=== PATIENT | male | born 1980 | race Caucasian/White ===

== ENCOUNTER 2017-10-26 08:05 | Outpatient (CLI) | payer MEDICAID ==
[2017-10-26 08:35] LABS: CHOL/HDL RATIO 8.2 (<5.0); CHOLESTEROL 196 mg/dL; HDL CHOLESTEROL 24 mg/dL; LDL CHOLESTEROL,CALCULATED 141 mg/dL; LDL/HDL RATIO 5.9 (<3.6); VLDL CHOLESTEROL 31 mg/dL
== END 2017-10-26 08:06 | disposition home or self-care (01) ==
LOC: LAB 08:05
PROVIDERS: ATTEND Nurse Practitioner Family
DX: E78.5 Hyperlipidemia, unspecified (principal); E29.1 Testicular hypofunction
CPT/HCPCS: 36415; 80061; 83721; 84403

== ENCOUNTER 2017-12-07 08:02 | Outpatient (CLI) | payer MEDICAID ==
[2017-12-07 08:26] LABS: BASOPHILS # (AUTO) 0.1 10^3/uL (0.0-0.1); BASOPHILS % (AUTO) 1.1 %; EOSINOPHILS # (AUTO) 0.1 10^3/uL (0.0-0.7); EOSINOPHILS % (AUTO) 1.8 %; HGB - HEMOGLOBIN 14.7 g/dL (14.0-18.0); LYMPHOCYTES # (AUTO) 1.9 10^3/uL (1.5-3.5); LYMPHOCYTES % (AUTO) 30.9 %; MEAN CORPUSCULAR HEMOGLOBIN 29.9 pg (27.0-31.0); MEAN CORPUSCULAR HGB CONC 33.7 g/dL (32.0-36.0); MEAN CORPUSCULAR VOLUME 88.7 fL (80.0-94.0); MONOCYTES # (AUTO) 0.7 10^3/uL (0.0-1.0); MONOCYTES % (AUTO) 11.6 %; NEUTROPHILS # (AUTO) 3.4 10^3/uL (1.5-6.6); NEUTROPHILS % (AUTO) 54.6 %; PLT - PLATELET COUNT 214 10^3/uL (130-450); RED BLOOD COUNT 4.91 10^6/uL (4.70-6.10); WHITE BLOOD COUNT 6.2 x10^3/uL (4.8-10.8)
[2017-12-07 08:51] LABS: THYROID STIMULATING HORMONE 0.44 uIU/mL (0.34-5.60); TOTAL IRON BINDING CAPACITY 297 ug/dL (250-450); TRANSFERRIN 212 mg/dL (180-329)
[2017-12-07 08:53] LABS: FREE T4 (FREE THYROXINE) 0.81 ng/dL (0.58-1.64)
[2017-12-07 08:57] LABS: PROLACTIN 6.82 ng/mL
[2017-12-07 09:13] LABS: % IRON SATURATION 26 % (20-50); IRON 77 ug/dL (45-182)
[2017-12-07 09:19] LABS: LUTEINIZING HORMONE 4.75 mIU/mL
== END 2017-12-07 08:03 | disposition home or self-care (01) ==
LOC: LAB 08:02
PROVIDERS: ATTEND Internal Medicine Endocrinology, Diabetes & Metabolism
DX: E29.1 Testicular hypofunction (principal)
CPT/HCPCS: 36415; 83002; 83540; 84146; 84403; 84439; 84443; 84466; 85025

== ENCOUNTER 2018-06-16 15:04 | Outpatient (CLI) | payer MEDICAID ==
--- NOTE | 2018-06-17 14:30 | XRAY Report ---
Reason: SCIATICA,LEFT Procedure Date: 06/16/2018 Accession Number: [id number] / [id number] Procedure: XR - Lumbar Spine 2 View CPT Code: FULL RESULT: EXAM: LUMBOSACRAL SPINE RADIOGRAPHY EXAM DATE: 06/16/2018 03:43 PM. CLINICAL HISTORY: Sciatica, left. COMPARISONS: None. TECHNIQUE: 2 views. FINDINGS: Alignment: Normal. No spondylolisthesis or scoliosis. Bones: Five mah-[id number]-[id number] lumbar vertebral bodies are present. No fractures or bone lesions. Disks: Normal. Disk heights are maintained. Facets: No degenerative changes. Sacroiliac Joints: Unremarkable. Soft Tissues: Normal. The visualized bowel gas pattern is normal. IMPRESSION: Normal lumbar spine radiography. [facility]
--- NOTE | 2018-06-17 15:44 | XRAY Report ---
Reason: SCIATICA,LEFT/LEG PAIN,LEFT Procedure Date: 06/16/2018 Accession Number: [id number] / [id number] Procedure: XR - Hips 2V BILAT CPT Code: FULL RESULT: EXAM: BILATERAL HIP RADIOGRAPHY EXAM DATE: 06/16/2018 03:43 PM. CLINICAL HISTORY: Sciatica, left, with leg pain. COMPARISON: None. TECHNIQUE: 2 views each. FINDINGS: Bones: Normal. No fractures or bone lesion. Right Hip: Normal. No dislocation. The hip joint space is preserved. Left Hip: Normal. No dislocation. The hip joint space is preserved. Soft Tissues: Normal. No soft tissue swelling. IMPRESSION: Normal bilateral hip radiography. [facility]
== END 2018-06-16 15:05 | disposition home or self-care (01) ==
LOC: DI 15:04
PROVIDERS: ATTEND Nurse Practitioner Family
DX: M54.32 Sciatica, left side (principal); M79.605 Pain in left leg
CPT/HCPCS: 72100; 73521

== ENCOUNTER 2018-06-17 15:24 | Emergency (ER) | payer MEDICAID ==
[2018-06-17 15:52] VITALS: BP 158/112
[2018-06-17] MEDS ORDERED: HYDROcod/ACETAM 5/325 MG TABLET PO STA (16:19)
--- NOTE | 2018-06-17 16:20 | ED Physician Documentation ---
PD HPI BACK PAIN - Stated complaint Stated Complaint: BACK PX - Chief complaint Chief Complaint: Back Pain - History obtained from History obtained from: Patient, Family - History of Present Illness Timing - onset: How many weeks ago (several) Timing - duration: Weeks (several) Timing - details: Gradual onset Pain level max: 8 Pain level now: 7 Location: Lower, Left Quality: Pain, Similar to prior episodes Associated symptoms: No: Fever, Weakness, Numbness, Incontinent of urine, Unable to urinate, Hematuria, Incontinent of stool Improves with: Rest Worsened by: Movement Contributing factors: Other (crawling in crawl spaces, lifting) Similar symptoms before: Diagnosis (sciatica) Recently seen: Clinic Review of Systems Constitutional: denies: Fever, Chills Nose: denies: Rhinorrhea / runny nose, Congestion Throat: denies: Sore throat Cardiac: denies: Chest pain / pressure Respiratory: denies: Cough GI: denies: Nausea, Vomiting, Diarrhea : denies: Unable to Void, Incontinent Skin: denies: Rash Neurologic: denies: Focal weakness, Numbness PD PAST MEDICAL HISTORY - Past Medical History Past Medical History: Yes : Kidney stones Musculoskeletal: Chronic back pain - Past Surgical History Past Surgical History: Yes HEENT: Tonsil/Adenoidectomy - Present Medications Home Medications: Ambulatory Orders Medication Instructions Recorded Confirmed Cetirizine [ZyrTEC] 10 mg PO DAILY PRN 10/03/14 04/19/15 Cholecalciferol (Vitamin D3) 5,000 unit ORAL DAILY 10/03/14 04/19/15 [Vitamin D3] Citalopram [CeleXA] 40 mg ORAL DAILY 10/03/14 04/19/15 Testosterone Cypionate 100 mg IM 04/19/15 04/19/15 [Depo-Testosterone] Hydrocodone/Acetaminophen [Vicodin 1 - 2 each PO Q6HR PRN #20 tablet 03/04/16 5-300 mg Tablet] Cyclobenzaprine [Flexeril] 06/17/18 Gabapentin 600 mg PO 06/17/18 Gabapentin 600 mg PO BID #60 capsule 06/17/18 Hydrocodone/Acetaminophen 1 - 2 each PO Q6H PRN #14 tablet 06/17/18 [Hydrocodon-Acetaminophen 5-325] Meloxicam [Mobic] 15 mg PO DAILY PRN #20 tablet 06/17/18 predniSONE [Deltasone] 10 mg PO [id number] #42 tab 06/17/18 - Allergies Allergies/Adverse Reactions: Allergies Allergy/AdvReac Type Severity Reaction Status Date / Time Penicillins Allergy Severe Rash Verified 06/17/18 15:51 venom-honey bee Allergy Severe Hives Verified 06/17/18 15:51 [bee venom (honey bee)] - Social History Does the pt smoke?: No Smoking Status: Never smoker Does the pt drink ETOH?: Yes Does the pt have substance abuse?: No - Immunizations Immunizations are current?: Yes PD ED PE NORMAL - Vitals Vital signs reviewed: Yes - General General: Alert and oriented X 3, No acute distress - HEENT HEENT: Moist mucous membranes - Neck Neck: Supple, no meningeal sign - Cardiac Cardiac: RRR, Strong equal pulses - Respiratory Respiratory: No respiratory distress, Clear bilaterally - Abdomen Abdomen: Soft, Non tender, Non distended - Back Back: No spinal TTP (No step-off or deformity. No midline tenderness to palpation or percussion) - Derm Derm: Warm and dry - Extremities Extremities: Normal ROM s pain, Other (Normal bilateral lower extremity patellar and ankle jerk reflexes. Normal great toe extension bilaterally. no saddle anesthesia) - Neuro Neuro: Alert and oriented X 3, No motor deficit, No sensory deficit Results - Vitals Vitals: Vital Signs - 24 hr 06/17/18 15:47 Temperature 36.4 C L Heart Rate 102 H Respiratory 20 Rate Blood Pressure 158/112 H O2 Saturation 99 Oxygen O2 Source Room air PD MEDICAL DECISION MAKING - ED course Complexity details: considered differential (No cauda equina, no spinal epidural abscess, no fracture, no aortic dissection or evidence of aneursym rupture), d/w patient ED course: Patient is a 38-year-old male with what appears to be left-sided sciatica. Out of his pain medication. We will trial him on several medications as well as increasing his gabapentin for home. No acute neurological findings. No evidence of cauda equina or epidural abscess. Patient counseled regarding signs and symptoms for which I believe and urgent re-evaluation would be necessary. Patient with good understanding of and agreement to plan and is comfortable going home at this time This document was made in part using voice recognition software. While efforts are made to proofread this document, sound alike and grammatical errors may occur. Departure - Departure Disposition: Home, Self Care Clinical Impression: Sciatica Qualifiers: Laterality: left Qualified Code(s): M54.32 - Sciatica, left side Condition: Good Instructions: ED Sciatica Follow-Up: Vikki Marcelo ARNP [Primary Care Provider] - Within 1 week Prescriptions: Gabapentin 600 mg PO BID #60 capsule Hydrocodone/Acetaminophen [Hydrocodon-Acetaminophen 5-325] 1 - 2 each PO Q6H PRN #14 tablet PRN Reason: pain Meloxicam [Mobic] 15 mg PO DAILY PRN #20 tablet PRN Reason: pain predniSONE [Deltasone] 10 mg PO [id number] #42 tab Comments: Return if you worsen. Take the medications as prescribed. Follow-up with your doctor for further evaluation and care. Do not drink alcohol or drive while on narcotic pain medicine. Note that many narcotic pain relievers also contain tylenol/acetaminophen. Please ensure that your total dose of acetaminophen from all sources does not exceed 3 grams (3000mg) per day. You may constipated on this medication, take a stool softener such as "Colace" twice a day while you are on it. Also recommend a ctzv-iaq-tsxucxe laxative such as senna or MiraLAX any day that you do not have a bowel movement. If you received narcotic pain medication in the emergency department, do not drive or operate machinery for the next 24 hours. Discharge Date/Time: 06/17/18 16:47
== END 2018-06-17 16:47 | disposition home or self-care (01) ==
LOC: ED 15:24
DX: M54.32 Sciatica, left side (principal)
CPT/HCPCS: 99283; A9270

== ENCOUNTER 2018-06-28 16:19 | Emergency (ER) | payer MEDICAID ==
[2018-06-28 16:29] VITALS: BP 156/102
--- NOTE | 2018-06-28 17:01 | ED Physician Documentation ---
PD HPI BACK PAIN - Stated complaint Stated Complaint: LOWER LFT SIDE BACK PX - Chief complaint Chief Complaint: Back Pain - History obtained from History obtained from: Patient - History of Present Illness Timing - onset: How many months ago (1.5) Timing - duration: Months (1.5) Timing - details: Gradual onset, Still present Pain level max: 9 Pain level now: 3 Location: Left Quality: Pain, Sharp Associated symptoms: Numbness (Intermittent). 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 No: Trauma, Anticoagulated, Cancer Similar symptoms before: Work up / diagnostics, Treatment, Follow up Recently seen: Emergency Dept, Other (PCP) - Additional information Additional information: 38-year-old male with no past medical or surgical history here with complaint of left-sided sciatica the past 1-1/2 months. Patient denies any trauma such as fall or twisting injury. However he works as a pesticide control chef & owner and prior to his discomfort he was crawling a lot for a week under the house to kill pesticides. 2 weeks ago he was seen here in the emergency room had an x-ray done and again followed up with a primary doctor where another x-ray was done. He is on gabapentin, meloxicam, and hydrocodone. Patient stated he was feeling better with all his medications however last Tuesday which is 2 days ago his left sciatica got aggravated again. Patient states he feels intermittent numbness behind his left leg and on top of his left foot. His pain is worse when he is putting weight on the left leg like walking. Denies any incontinence, abdominal pain or fever. Patient stated his primary doctor will see him next Tuesday for steroid shots. Review of Systems Ten Systems: 10 systems reviewed and negative Constitutional: denies: Fever, Myalgias GI: denies: Abdominal Pain : denies: Incontinent Skin: denies: Rash Musculoskeletal: reports: Back pain, Extremity pain, Pain with weight bearing. denies: Neck pain, Joint pain, Extremity swelling, Joint swelling Neurologic: reports: Numbness. denies: Generalized weakness, Focal weakness, Head injury PD PAST MEDICAL HISTORY - Past Medical History Past Medical History: Yes : Kidney stones Musculoskeletal: Chronic back pain - Past Surgical History Past Surgical History: Yes HEENT: Tonsil/Adenoidectomy - Present Medications Home Medications: Ambulatory Orders Medication Instructions Recorded Confirmed Cetirizine [ZyrTEC] 10 mg PO DAILY PRN 10/03/14 04/19/15 Cholecalciferol (Vitamin D3) 5,000 unit ORAL DAILY 10/03/14 04/19/15 [Vitamin D3] Citalopram [CeleXA] 40 mg ORAL DAILY 10/03/14 04/19/15 Testosterone Cypionate 100 mg IM 04/19/15 04/19/15 [Depo-Testosterone] Cyclobenzaprine [Flexeril] 06/17/18 Gabapentin 600 mg PO BID #60 capsule 06/17/18 Hydrocodone/Acetaminophen 1 - 2 each PO Q6H PRN #14 tablet 06/17/18 [Hydrocodon-Acetaminophen 5-325] Meloxicam [Mobic] 15 mg PO DAILY PRN #20 tablet 06/17/18 Lidocaine Patch 5% [Lidoderm Patch] 1 patch TOP DAILY PRN #10 patch 06/28/18 - Allergies Allergies/Adverse Reactions: Allergies Allergy/AdvReac Type Severity Reaction Status Date / Time Penicillins Allergy Severe Rash Verified 06/17/18 15:51 venom-honey bee Allergy Severe Hives Verified 06/28/18 16:26 [bee venom (honey bee)] - Social History Does the pt smoke?: No Smoking Status: Never smoker Does the pt drink ETOH?: Yes Does the pt have substance abuse?: No - Immunizations Immunizations are current?: Yes - POLST Patient has POLST: No PD ED PE NORMAL - Vitals Vital signs reviewed: Yes - General General: Alert and oriented X 3, No acute distress, Well developed/nourished - HEENT HEENT: Moist mucous membranes - Neck Neck: Supple, no meningeal sign - Cardiac Cardiac: RRR, No murmur, Strong equal pulses - Respiratory Respiratory: No respiratory distress, Clear bilaterally - Abdomen Abdomen: Normal bowel sounds, Soft, Non tender, Non distended - Back Back: No CVA TTP, No spinal TTP - Derm Derm: Warm and dry - Extremities Extremities: No deformity, Normal ROM s pain, No edema, No calf tenderness / cord, Other (Negative leg raising bilaterally) - Neuro Neuro: Alert and oriented X 3, 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 Well score 0)), d/w patient (Instructed to get a referral for an MRI of his lumbar spine from his PCP. Patient expressed understanding of outpatient follow-up and treatment.), d/w family Departure - Departure Disposition: 01 Home, Self Care Clinical Impression: Back pain Qualifiers: Back pain location: low back pain Chronicity: acute Back pain laterality: left Sciatica presence: with sciatica Sciatica Qualifiers: Laterality: left Qualified Code(s): M54.32 - Sciatica, left side Condition: Stable Instructions: ED Chronic Pain Management, ED Neck Back Pain General Prescriptions: Lidocaine Patch 5% [Lidoderm Patch] 1 patch TOP DAILY PRN #10 patch PRN Reason: pain Comments: Keep your scheduled appointment with your primary doctor. Continue with your current pain medication as prescribed by your primary doctor. When you see your primary doctor next week once a get the referral for outpatient MRI of your lumbar area. In addition get a referral to a spine orthopedic doctor and or pain management doctor. If your pain worse And your left leg numbness is worse or you start developing incontinence return to the emergency room.
== END 2018-06-28 17:18 | disposition home or self-care (01) ==
LOC: ED 16:19
DX: M54.32 Sciatica, left side (principal)
CPT/HCPCS: 99283

== ENCOUNTER 2018-08-06 22:23 | Outpatient (CLI) | payer MEDICAID | END 2018-08-06 23:59 | disposition critical access hospital (66) | LOC: EMS 22:23 | PROVIDERS: ATTEND Surgery | DX: R51 Headache (principal); M54.2 Cervicalgia | CPT/HCPCS: A0425; A0429; A0999 ==

== ENCOUNTER 2018-08-06 22:35 | Emergency (ER) | payer MEDICAID ==
[2018-08-06] MEDS ORDERED: diphenhydrAMINE INJ 50 MG/ML VIAL IVP STA (22:44)
[2018-08-06] MEDS ORDERED: SODIUM CHLORIDE 0.9% 1,000 ML IV ONE (22:44)
[2018-08-06] MEDS ORDERED: PROCHLORPERAZINE 10 MG/2 ML VIAL IVP STA (22:44)
[2018-08-06] MEDS ORDERED: ACETAMINOPHEN 1,000 MG/100 ML 100 ML IV STA (22:44)
[2018-08-06] MEDS ORDERED: IOVERSOL 320 100 ML VIAL IVP ONE ×2 (22:54→23:33)
--- NOTE | 2018-08-06 22:55 | ED Physician Documentation ---
History of Present Illness - Stated complaint Stated Complaint: HEADACHE / BODY PAIN - Chief complaint Chief Complaint: Neuro - Additonal information Additional information: hx from pt healthy 38 y/o male only sig pmhx is sciatica was in good health until shortly prior to arrival when he abruptly developed severe R posterior neck and head pain and developed tingling to his L arm and leg no trauma denies any chance of CO exposure (everyone else at home is OK and they have alarms) no hx headaches no recent fevers cough NVD myalgias sweaty due to severity of pain NN states PMHx of HTN HLD but not on meds for same - states no HLD and BP only high since his sciatica issues started Review of Systems Constitutional: reports: Sweats. denies: Fever, Chills Eyes: denies: Loss of vision, Photophobia Ears: denies: Loss of hearing, Ear pain Cardiac: denies: Chest pain / pressure Respiratory: denies: Dyspnea, Cough GI: denies: Abdominal Pain, Nausea, Vomiting Skin: denies: Rash Musculoskeletal: reports: Neck pain Neurologic: reports: Headache. denies: Focal weakness, Numbness (tingling but not numb), Syncope, Head injury Immunocompromised: denies: Immunocompromised PD PAST MEDICAL HISTORY - Past Medical History Past Medical History: No Cardiovascular: Hypertension, High cholesterol Respiratory: None Neuro: None Endocrine/Autoimmune: None GI: None : Kidney stones HEENT: None Psych: Depression Musculoskeletal: None, Chronic back pain Derm: None - Past Surgical History Past Surgical History: Yes HEENT: Myringotomy (tubes), Tonsil/Adenoidectomy - Present Medications Home Medications: Ambulatory Orders Medication Instructions Recorded Confirmed Cetirizine [ZyrTEC] 10 mg PO DAILY PRN 10/03/14 04/19/15 Cholecalciferol (Vitamin D3) 5,000 unit ORAL DAILY 10/03/14 04/19/15 [Vitamin D3] Citalopram [CeleXA] 40 mg ORAL DAILY 10/03/14 04/19/15 Testosterone Cypionate 100 mg IM 04/19/15 04/19/15 [Depo-Testosterone] Cyclobenzaprine [Flexeril] 10 mg PRN 06/17/18 Hydrocodone/Acetaminophen 1 - 2 each PO Q6H PRN #14 tablet 06/17/18 [Hydrocodon-Acetaminophen 5-325] Meloxicam [Mobic] 15 mg PO DAILY PRN #20 tablet 06/17/18 Gabapentin 300 mg PO TID 08/07/18 - Allergies Allergies/Adverse Reactions: Allergies Allergy/AdvReac Type Severity Reaction Status Date / Time Penicillins Allergy Severe Rash Verified 08/06/18 22:42 venom-honey bee Allergy Severe Hives Verified 08/06/18 22:42 [bee venom (honey bee)] - Social History Does the pt smoke?: No Smoking Status: Never smoker Does the pt drink ETOH?: Yes Does the pt have substance abuse?: No - Immunizations Immunizations are current?: Yes - POLST Patient has POLST: No PD ED PE NORMAL - Vitals Vital signs reviewed: Yes - General General: Alert and oriented X 3 - HEENT HEENT: PERRL (5 brennan, reactive not injected, globes soft, no TA TTP) - Neck Neck: Supple, no meningeal sign, Other (no pulsatile mass) - Cardiac Cardiac: RRR - Respiratory Respiratory: Clear bilaterally - Abdomen Abdomen: Soft, Non tender - Neuro Neuro: Alert and oriented X 3, auditor/quality 2-12 intact, No motor deficit, No sensory deficit, Normal speech Eye Opening: Spontaneous Motor: Obeys Commands Verbal: Oriented GCS Score: 15 Results - Vitals Vitals: Vital Signs - 24 hr 08/06/18 08/06/18 08/07/18 22:37 23:51 00:50 Temperature 36.5 C Heart Rate 98 102 H 101 H Respiratory 18 16 22 Rate Blood Pressure 200/111 H 158/106 H 164/106 H O2 Saturation 99 97 96 08/07/18 01:03 Temperature Heart Rate 113 H Respiratory 23 Rate Blood Pressure 174/97 H O2 Saturation 97 Oxygen O2 Source Room air - Labs Labs: Laboratory Tests 08/07/18 08/07/18 00:10 00:10 WBC 8.8 RBC 4.89 Hgb 15.0 Hct 43.6 MCV 89.2 MCH 30.7 MCHC 34.4 RDW 14.4 Plt Count 240 MPV 8.5 Neut # (Auto) 5.7 Lymph # (Auto) 1.8 [place] # (Auto) 1.1 H Eos # (Auto) 0.1 Baso # (Auto) 0.1 Absolute Nucleated RBC 0.00 Nucleated RBC % 0.0 Sodium 136 Potassium 3.0 L Chloride 102 Carbon Dioxide 26 Anion Gap 8.0 BUN 8 Creatinine 0.8 Estimated GFR (MDRD) 107 Glucose 134 H Calcium 8.8 - Rads (name of study) CTH Radiology: See rad report (+ SAH) CTA head Radiology: See rad report (no aneurysm or AVM) CTA neck Radiology: See rad report (no aneurysm dissection) PD MEDICAL DECISION MAKING - ED course ED course: CTH shows SAH CTA head and neck do not show aneurysm or AVM - but could miss small or basilar aneurysms called [facility] and neurosurg Dr Escoto and junior copywriter Dr Dale pt in transfer - req cardene gtt to lower BP pain improved with ofirmev also compazine as marciano interacted with his celexa ADDENDUM - radia called back and there be a small 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
[2018-08-07 00:16] LABS: BASOPHILS # (AUTO) 0.1 10^3/uL (0.0-0.1); BASOPHILS % (AUTO) 1.1 %; EOSINOPHILS # (AUTO) 0.1 10^3/uL (0.0-0.7); EOSINOPHILS % (AUTO) 1.5 %; LYMPHOCYTES # (AUTO) 1.8 10^3/uL (1.5-3.5); LYMPHOCYTES % (AUTO) 20.1 %; MEAN CORPUSCULAR HEMOGLOBIN 30.7 pg (27.0-31.0); MEAN CORPUSCULAR HGB CONC 34.4 g/dL (32.0-36.0); MEAN CORPUSCULAR VOLUME 89.2 fL (80.0-94.0); MEAN PLATELET VOLUME 8.5 fL (7.4-11.4); MONOCYTES # (AUTO) 1.1 10^3/uL (0.0-1.0); MONOCYTES % (AUTO) 12.3 %; NEUTROPHILS # (AUTO) 5.7 10^3/uL (1.5-6.6); PLT - PLATELET COUNT 240 10^3/uL (130-450); RED BLOOD COUNT 4.89 10^6/uL (4.70-6.10); RED CELL DISTRIBUTION WIDTH 14.4 % (12.0-15.0); WHITE BLOOD COUNT 8.8 x10^3/uL (4.8-10.8)
--- NOTE | 2018-08-07 00:21 | CT Report ---
Reason: abrupt R posterior LEMON with tingling to LUE LLE Procedure Date: 08/06/2018 Accession Number: [id number] / [id number] Procedure: CT - Head W/O CPT Code: FULL RESULT: EXAM: CT HEAD EXAM DATE: 08/06/2018 11:38 PM. CLINICAL HISTORY: Abrupt right posterior LEMON with tingling to left upper extremity and left lower extremity. COMPARISON: None. TECHNIQUE: Multiaxial CT images were obtained from the foramen magnum to the vertex. Reformats: Coronal. IV contrast: None. In accordance with CT protocol optimization, one or more of the following dose reduction techniques were utilized for this exam: automated exposure control, adjustment of mA and/or KV based on patient size, or use of iterative reconstructive technique. FINDINGS: Parenchyma: No intraparenchymal hemorrhage. No evidence of mass, midline shift, or CT findings of infarction. Baird-white differentiation is distinct. Extraaxial Spaces: There is small volume subarachnoid hemorrhage in the central basilar cisterns. There is involvement of interpeduncular, suprasellar, and right ambient cisterns and left sylvian fissure. There is small-volume hemorrhage anterior to the yvonne and medulla. Ventricles: Normal in size and position. Sinuses and Orbits: Imaged paranasal sinuses, orbits, and mastoids show no significant abnormality. Bones: No evidence of fracture or calvarial defect. Other: There is soft tissue thickening in posterior scalp which may represent a contusion.. IMPRESSION: Small-volume central acute subarachnoid hemorrhage. [facility] The above findings were discussed with the managing provider at 00:16 hrs on 08/07/18.
[2018-08-07 00:25] LABS: CALCIUM 8.8 mg/dL (8.5-10.3); CREATININE 0.8 mg/dL (0.6-1.2)
[2018-08-07] MEDS ORDERED: niCARdipine 20 MG/200 ML 20 MG/200 ML BAG IV STA (00:40)
[2018-08-07] MEDS ORDERED: POTASSIUM CHLOR 10 MEQ/100 ML 10 MEQ/100 ML BAG IV STA (00:47)
--- NOTE | 2018-08-07 00:49 | CT Report ---
Reason: abrupt R posterior neck/LEMON with tingling LUE LLE Procedure Date: 08/06/2018 Accession Number: [id number] / [id number] Procedure: CT - Neck Angio CPT Code: FULL RESULT: EXAM: CT ANGIOGRAM NECK EXAM DATE: 08/06/2018 11:44 PM. CLINICAL HISTORY: Abrupt right posterior neck/headache with tingling left upper and left lower extremity . COMPARISON: None. TECHNIQUE: Routine axial helical imaging was performed from the skull base through the aortic arch. Reconstructions: Routine multiplanar 3D MIP reconstructions. IV Contrast: 80 ML OPTIRAY 320. Evaluation of arterial stenosis is based on a NASCET method of measurement. In accordance with CT protocol optimization, one or more of the following dose reduction techniques were utilized for this exam: automated exposure control, adjustment of mA and/or KV based on patient size, or use of iterative reconstructive technique. FINDINGS: Right Carotid: The common carotid, internal carotid, and external carotid arteries are widely patent. No dissection, significant atherosclerotic plaque, or calcification identified. Left Carotid: The common carotid, internal carotid, and external carotid arteries are widely patent. No dissection, significant atherosclerotic plaque, or calcification identified. Vertebrals: The vertebrobasilar system shows no stenoses. Other: The bones, soft tissues, and lung apices are within normal limits. IMPRESSION: Normal neck CT angiogram. No dissection or hemodynamically significant stenoses. [facility]
--- NOTE | 2018-08-07 01:01 | CT Report ---
Reason: abrupt R posterior LEMON with tingling to LUE LLE Procedure Date: 08/06/2018 Accession Number: [id number] / [id number] Procedure: CT - Head Angio CPT Code: FULL RESULT: EXAM: CT ANGIOGRAM HEAD. CT SCAN OF THE HEAD WITH CONTRAST. EXAM DATE: 08/06/2018 11:40 PM CLINICAL HISTORY: Abrupt right posterior headache with tingling to left upper and left lower extremities. COMPARISON: None. TECHNIQUE: - CT Scan Head: Using a multidetector scanner, axial images were acquired from the foramen magnum to the skull vertex following contrast administration. - CT Angiogram: Using a multidetector scanner, high-resolution axial images were acquired from the skull base through vertex following rapid infusion of intravenous contrast. Reformats: Multiplanar MIP reformats were reconstructed. Nascet criteria used for stenosis measurement. IV Contrast: 80 ML OPTIRAY 320. In accordance with CT protocol optimization, one or more of the following dose reduction techniques were utilized for this exam: automated exposure control, adjustment of mA and/or KV based on patient size, or use of iterative reconstructive technique. FINDINGS: POST-CONTRAST HEAD: There is no new central subarachnoid hemorrhage. No hydrocephalus. No abnormal enhancement. CT ANGIOGRAM HEAD: RIGHT: Internal Carotid artery: No evidence of dissection. No evidence of aneurysm along the intracranial ICA. Anterior Cerebral Artery: Patent without significant stenosis, aneurysm, or vascular malformation. Middle Cerebral Artery: Patent without significant stenosis, aneurysm, or vascular malformation. Posterior Cerebral Artery: Mild irregularity of right P1 SHAREPOINT ADMINISTRATOR segment with 1.2 mm anterior outpouching (series 4, image 112). Posterior Communicating Artery: Not visualized. Vertebral Artery: Patent without significant stenosis. No evidence of dissection. LEFT: Internal Carotid artery: No evidence of dissection. No evidence of aneurysm along the intracranial ICA. Anterior Cerebral Artery: Patent without significant stenosis, aneurysm, or vascular malformation. Middle Cerebral Artery: Patent without significant stenosis, aneurysm, or vascular malformation. Posterior Cerebral Artery: Patent without significant stenosis, aneurysm, or vascular malformation. Posterior Communicating Artery: Not visualized. Vertebral Artery: Patent without significant stenosis. No evidence of dissection. CENTRAL: Anterior Communicating Artery: Patent. No aneurysm. Basilar Artery: Patent without significant stenosis. No aneurysm. DURAL VENOUS SINUSES AND MAJOR CENTRAL VEINS: Patent. IMPRESSION: CT Head: Known acute central subarachnoid hemorrhage. No abnormal enhancement. CTA Head: Irregularity of right P1 SHAREPOINT ADMINISTRATOR segment equivocal for 1.2 mm aneurysm. Otherwise unremarkable intracranial CT angiogram. Recommend consultation with neurovascular specialist. Results discussed with Dr. Renner at time of dictation. RADIA
[2018-08-07 01:04] VITALS: BP 174/97
== END 2018-08-07 01:36 | disposition short-term general hospital (02) ==
LOC: EDUNIT# → ED 22:35
DX: I60.9 Nontraumatic subarachnoid hemorrhage, unspecified (principal); I67.1 Cerebral aneurysm, nonruptured; I10 Essential (primary) hypertension; E78.00 Pure hypercholesterolemia, unspecified
CPT/HCPCS: 36415; 70450; 70496; 70498; 80048; 85025; 96365; 96367; 96375; 99285; J0131; J1200; Q9967

== ENCOUNTER 2018-09-01 12:04 | Outpatient (CLI) | payer MEDICAID ==
--- NOTE | 2018-09-01 16:06 | MRI Report ---
Reason: ELEVATED LIVER ENZYMES Procedure Date: 09/01/2018 Accession Number: [id number] / [id number] Procedure: MRI - Lumbar Spine W/O CPT Code: FULL RESULT: EXAM: MRI LUMBAR SPINE WITHOUT CONTRAST EXAM DATE: 09/01/2018 12:23 PM. CLINICAL HISTORY: Low back pain radiating to the left leg. COMPARISON: No prior lumbar spine MRI. TECHNIQUE: Multiplanar, multisequence T1-weighted and fluid-sensitive sequences of the lumbar spine from T12 to S1 without contrast. Other: None. FINDINGS: Spinal Canal: The conus terminates at L1. Unremarkable appearance of the conus medullaris. Alignment: No scoliosis or spondylolisthesis. Bone Marrow: Five [id number] lumbar vertebral bodies are assumed. No gross fractures or bone lesions. No bone marrow replacement. Disk Levels/Facets: T12-L1: Unremarkable. L1-L2: Unremarkable. L2-L3: Minimal asymmetric left intraforaminal and far lateral disk protrusion but without evidence for significant stenosis or neural impingement. L3-L4: Minimal to mild asymmetric left intraforaminal and far lateral disk protrusion. Stenosis is mild. There is no definite nerve root compression. L4-L5: No disk space narrowing. Minimal circumferential disk bulge. No focal extrusion. Minimal facet arthropathy. Patent central canal. Negligible foraminal narrowing. No nerve root compression. L5-S1: Mild to moderate degenerative disk disease posteriorly. Shallow circumferential disk bulge. Minimal marginal spurring. There is also a large extradural defect extending just below the disk space level to the left of midline with severe impingement of the left lateral recess, this is consistent with a large disk extrusion measuring 7-8 mm with displacement and compression of the left S1 nerve. Bilateral foraminal stenosis is mild. The central canal is patent, no thecal sac impingement. Musculature: Normal. No edema or fatty atrophy. Other: None. IMPRESSION: Of the multiple degenerative changes mentioned above the most significant is a large disk herniation to the left of midline from the L5-S1 level extending just below the level of the disk space with marked impingement of the left lateral recess and displacement with compression of the left S1 nerve. Comment: The following findings are so common in adults without low back pain that while we report their presence, they must be interpreted with caution and in the context of the clinical situation. (Reference Amy et al, Spine 2001) Prevalence of findings in patients without low back pain: Disk degeneration (any evidence): 92% Disk desiccation/T2 signal loss: 83% Disk height loss: 56% Disk bulge: 64% Disk protrusion: 32% Annular tear/high intensity zone: 38% RADIA
== END 2018-09-01 12:05 | disposition home or self-care (01) ==
LOC: DI 12:04
PROVIDERS: ATTEND Nurse Practitioner Family
DX: M51.27 Other intervertebral disc displacement, lumbosacral region (principal); M51.26 Other intervertebral disc displacement, lumbar region; M51.37 Other intervertebral disc degeneration, lumbosacral region; M48.07 Spinal stenosis, lumbosacral region; M47.9 Spondylosis, unspecified
CPT/HCPCS: 72148

== ENCOUNTER 2018-12-24 13:09 | Emergency (ER) | payer MEDICAID ==
[2018-12-24 14:05] LABS: BASOPHILS # (AUTO) 0.1 10^3/uL (0.0-0.1); BASOPHILS % (AUTO) 1.1 %; EOSINOPHILS # (AUTO) 0.1 10^3/uL (0.0-0.7); EOSINOPHILS % (AUTO) 1.5 %; HGB - HEMOGLOBIN 15.1 g/dL (14.0-18.0); LYMPHOCYTES # (AUTO) 2.2 10^3/uL (1.5-3.5); LYMPHOCYTES % (AUTO) 40.4 %; MEAN CORPUSCULAR HEMOGLOBIN 30.4 pg (27.0-31.0); MEAN CORPUSCULAR HGB CONC 33.4 g/dL (32.0-36.0); MEAN CORPUSCULAR VOLUME 91.1 fL (80.0-94.0); MEAN PLATELET VOLUME 8.6 fL (7.4-11.4); MONOCYTES # (AUTO) 0.5 10^3/uL (0.0-1.0); MONOCYTES % (AUTO) 9.5 %; NEUTROPHILS # (AUTO) 2.5 10^3/uL (1.5-6.6); NEUTROPHILS % (AUTO) 47.5 %; PLT - PLATELET COUNT 247 10^3/uL (130-450); RED BLOOD COUNT 4.97 10^6/uL (4.70-6.10); RED CELL DISTRIBUTION WIDTH 13.7 % (12.0-15.0); WHITE BLOOD COUNT 5.3 x10^3/uL (4.8-10.8)
[2018-12-24 14:17] LABS: ALBUMIN 4.1 g/dL (3.2-5.5); ALBUMIN/GLOBULIN RATIO 1.5 (1.0-2.2); BILIRUBIN,TOTAL 0.5 mg/dL (0.2-1.0); CALCIUM 9.2 mg/dL (8.5-10.3); CREATININE 0.8 mg/dL (0.6-1.2); TOTAL PROTEIN 6.9 g/dL (6.7-8.2)
[2018-12-24 14:36] VITALS: BP 138/77
--- NOTE | 2018-12-24 15:21 | ED Physician Documentation ---
History of Present Illness - Stated complaint Stated Complaint: DIZZY/HEADACHE - Chief complaint Chief Complaint: Neuro - History obtained from History obtained from: Patient, Family - History of Present Illness Timing: How many weeks ago (2) - Additonal information Additional information: 38-year-old male with a history of hypertensive subarachnoid hemorrhage has developed some dizziness this past 2 weeks that he describes as a feeling of lightheadedness when he stands too fast or moves too much. He states that this improved when he went home and this past week he is felt that he needed to stay home from work because his symptoms were persistent through the day. He has not had vomiting or diarrhea and he acknowledges a decreased intake of fluids recen tly. Review of Systems Constitutional: denies: Fever Eyes: denies: Decreased vision Ears: denies: Ear pain Nose: reports: Rhinorrhea / runny nose. denies: Congestion Throat: denies: Sore throat Cardiac: denies: Chest pain / pressure, Palpitations Respiratory: denies: Dyspnea, Cough GI: denies: Abdominal Pain, Nausea, Vomiting : denies: Dysuria, Frequency PD PAST MEDICAL HISTORY - Past Medical History Cardiovascular: Hypertension, High cholesterol Respiratory: None Neuro: None Endocrine/Autoimmune: None GI: None : Kidney stones HEENT: None Psych: Depression Musculoskeletal: None, Chronic back pain Derm: None - Past Surgical History Past Surgical History: Yes HEENT: Myringotomy (tubes), Tonsil/Adenoidectomy - Present Medications Home Medications: Ambulatory Orders Medication Instructions Recorded Confirmed Cetirizine [ZyrTEC] 10 mg PO DAILY PRN 10/03/14 04/19/15 Cholecalciferol (Vitamin D3) 5,000 unit ORAL DAILY 10/03/14 04/19/15 [Vitamin D3] Citalopram [CeleXA] 40 mg ORAL DAILY 10/03/14 04/19/15 Testosterone Cypionate 100 mg IM 04/19/15 04/19/15 [Depo-Testosterone] Cyclobenzaprine [Flexeril] 10 mg PRN 06/17/18 Hydrocodone/Acetaminophen 1 - 2 each PO Q6H PRN #14 tablet 06/17/18 [Hydrocodon-Acetaminophen 5-325] Meloxicam [Mobic] 15 mg PO DAILY PRN #20 tablet 06/17/18 Gabapentin 300 mg PO TID 08/07/18 - Allergies Allergies/Adverse Reactions: Allergies Allergy/AdvReac Type Severity Reaction Status Date / Time Penicillins Allergy Severe Rash Verified 08/06/18 22:42 venom-honey bee Allergy Severe Hives Verified 08/06/18 22:42 [bee venom (honey bee)] - Social History Does the pt smoke?: No Smoking Status: Never smoker Does the pt drink ETOH?: Yes Does the pt have substance abuse?: No - Immunizations Immunizations are current?: Yes - POLST Patient has POLST: No PD ED PE NORMAL - Vitals Vital signs reviewed: Yes (normal ) - General General: Alert and oriented X 3, No acute distress, Well developed/nourished - HEENT HEENT: Atraumatic, PERRL, EOMI, Ears normal, Pharynx benign, Dentition benign, Other (dry mucous membranes ) - Neck Neck: Supple, no meningeal sign, No bony TTP - Cardiac Cardiac: RRR, No murmur - Respiratory Respiratory: No respiratory distress, Clear bilaterally - Abdomen Abdomen: Soft, Non tender - Back Back: No CVA TTP, No spinal TTP - Derm Derm: Normal color, Warm and dry, No rash - Extremities Extremities: No deformity, No edema - Neuro Neuro: Alert and oriented X 3, 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, No motor deficit, No sensory deficit, Normal speech Eye Opening: Spontaneous Motor: Obeys Commands Verbal: Oriented GCS Score: 15 - Psych Psych: Normal mood, Normal affect Results - Vitals Vitals: Vital Signs - 24 hr 12/24/18 12/24/18 13:25 14:35 Temperature 36.6 C Heart Rate 66 72 Respiratory 18 16 Rate Blood Pressure 125/77 138/77 H O2 Saturation 99 98 Oxygen O2 Source Room air - Labs Labs: Laboratory Tests 12/24/18 12/24/18 13:59 13:59 WBC 5.3 RBC 4.97 Hgb 15.1 Hct 45.3 MCV 91.1 MCH 30.4 MCHC 33.4 RDW 13.7 Plt Count 247 MPV 8.6 Neut # (Auto) 2.5 Lymph # (Auto) 2.2 [place] # (Auto) 0.5 Eos # (Auto) 0.1 Baso # (Auto) 0.1 Absolute Nucleated RBC 0.00 Nucleated RBC % 0.0 Sodium 139 Potassium 3.9 Chloride 104 Carbon Dioxide 25 Anion Gap 10.0 BUN 10 Creatinine 0.8 Estimated GFR (MDRD) 107 Glucose 93 Calcium 9.2 Total Bilirubin 0.5 AST 25 ALT 34 Alkaline Phosphatase 46 Total Protein 6.9 Albumin 4.1 Globulin 2.8 Albumin/Globulin Ratio 1.5 Lipase 45 Procedures - IVC sono (time) 1515 Bedside IVC sono: IVC measures (cm) (0.89), IVC collapsed c insp (cm) (complete), Dehydration (est 2 liter deficit) PD MEDICAL DECISION MAKING - ED course Complexity details: reviewed old records, reviewed results, re-evaluated patient, considered differential, d/w patient, d/w family ED course: 38-year-old male with prior hypertensive subarachnoid hemorrhage has developed dizziness and on interrogation of the inferior vena cava he is dehydrated. This is the correct time of year for this dehydration as it is been warm out recently and the patient has not yet adjusted. He acknowledges poor oral intake of fluids. He will increase his intake of fluids. Departure - Departure Disposition: 01 Home, Self Care Clinical Impression: Dehydration Condition: Stable Instructions: ED Dehydration Follow-Up: David Kwon MD [Primary Care Provider] -
== END 2018-12-24 15:31 | disposition home or self-care (01) ==
LOC: ED 13:09
DX: E86.0 Dehydration (principal); I10 Essential (primary) hypertension; Z86.79 Personal history of other diseases of the circulatory system
CPT/HCPCS: 36415; 80053; 83690; 85025; 99283; 99284

== ENCOUNTER 2019-02-22 13:48 | Emergency (ER) | payer MEDICAID ==
--- NOTE | 2019-02-22 14:05 | ED Physician Documentation ---
PD HPI URI - Stated complaint Stated Complaint: FEVER/COUGH/LEMON - Chief complaint Chief Complaint: Resp - History obtained from History obtained from: Patient - History of Present Illness Timing - onset: How many days ago (5) Timing duration: Days (5) Timing details: Gradual onset, Still present Associated symptoms: Fever, Chills, Nasal congestion, Dry cough. No: Sinus pain, Sore throat, NVD (but less appetite/intake) Contributing factors: Sick contact (spouse with bronchitis symptoms last week but improved and did not have the degree of fever.). No: Immunocompromised, COPD / asthma Similar symptoms before: Has not had sx before Recently seen: Not recently seen Review of Systems Constitutional: reports: Fever, Chills, Myalgias, Fatigue Nose: reports: Congestion Throat: denies: Sore throat Cardiac: denies: Chest pain / pressure, Palpitations Respiratory: reports: Dyspnea, Cough, Wheezing Neurologic: reports: Headache. 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, and was at [facility] for 9 days, with MRI/Angio and says he did not have surgery nor any clipping nor coiling needed.) Endocrine/Autoimmune: None GI: None : Kidney stones HEENT: None Psych: Depression Musculoskeletal: None, Chronic back pain Derm: None - Past Surgical History Past Surgical History: Yes HEENT: Myringotomy (tubes), Tonsil/Adenoidectomy - Present Medications Home Medications: Ambulatory Orders Medication Instructions Recorded Confirmed Cetirizine [ZyrTEC] 10 mg PO DAILY PRN 10/03/14 04/19/15 Cholecalciferol (Vitamin D3) 5,000 unit ORAL DAILY 10/03/14 04/19/15 [Vitamin D3] Citalopram [CeleXA] 40 mg ORAL DAILY 10/03/14 04/19/15 Testosterone Cypionate 100 mg IM 04/19/15 04/19/15 [Depo-Testosterone] Cyclobenzaprine [Flexeril] 10 mg PRN 06/17/18 Hydrocodone/Acetaminophen 1 - 2 each PO Q6H PRN #14 tablet 06/17/18 [Hydrocodon-Acetaminophen 5-325] Meloxicam [Mobic] 15 mg PO DAILY PRN #20 tablet 06/17/18 Gabapentin 300 mg PO TID 08/07/18 Albuterol 2.5 mg INH Q4H PRN #30 neb 02/22/19 Albuterol Sulf [Ventolin Hfa 1 - 2 puffs INH Q4HR PRN #1 inhaler 02/22/19 Inhaler] Benzonatate [Tessalon Perle] 100 mg PO TID PRN #30 capsule 02/22/19 Doxycycline Hyclate 100 mg PO BID #14 capsule 02/22/19 Hydrocodone/Acetaminophen [[place] 1 each PO Q6H PRN #15 tablet 02/22/19 5-325 Tablet] Ondansetron Odt [Zofran] 4 mg TL Q6H PRN #15 tablet 02/22/19 dexAMETHasone [Decadron] 4 mg PO DAILY #7 tablet 02/22/19 - Allergies Allergies/Adverse Reactions: Allergies Allergy/AdvReac Type Severity Reaction Status Date / Time Penicillins Allergy Severe Rash Verified 08/06/18 22:42 venom-honey bee Allergy Severe Hives Verified 08/06/18 22:42 [bee venom (honey bee)] - Social History Does the pt smoke?: No Smoking Status: Never smoker Does the pt drink ETOH?: Yes Does the pt have substance abuse?: No - Immunizations Immunizations are current?: Yes - POLST Patient has POLST: No PD ED PE NORMAL - Vitals Vital signs reviewed: Yes - General General: Alert and oriented X 3, Well developed/nourished, Other (appears uncomfortable due to cough, some headache with it, and some pallor. ) - HEENT HEENT: Ears normal, Pharynx benign. No: Moist mucous membranes - Neck Neck: Supple, no meningeal sign, No adenopathy - Cardiac Cardiac: RRR, No murmur - Respiratory Respiratory: No: Clear bilaterally (diffuse wheezing, without coarse sounds. ) - Abdomen Abdomen: Soft, Non tender - Back Back: No CVA TTP - Derm Derm: Warm and dry. No: Normal color (some pallor) - Extremities Extremities: No tenderness to palpate, Normal ROM s pain - Neuro Neuro: Alert and oriented X 3, No motor deficit, Normal speech Eye Opening: Spontaneous Motor: Obeys Commands Verbal: Oriented GCS Score: 15 Results - Vitals Vitals: Vital Signs - 24 hr 02/22/19 02/22/19 02/22/19 13:52 15:10 17:08 Temperature 37.2 C 36.4 C L Heart Rate 97 100 97 Respiratory 18 16 20 Rate Blood Pressure 145/84 H 149/90 H O2 Saturation 97 98 Oxygen O2 Source Room air PD MEDICAL DECISION MAKING - ED course Complexity details: re-evaluated patient (improved quite nicely with fluids, meds, neb treatment. I wanted him to feel and look better, less cough and such, since he had had acute SAH with CVA last year, so as to decrease ICP from cough/etc. It was good to have him appearing improved, good color, comfortable, mild cough only. ), considered differential, d/w patient Departure - Departure Disposition: Home, Self Care Clinical Impression: Lower respiratory infection Dyspnea Qualifiers: Dyspnea type: shortness of breath Qualified Code(s): R06.02 - Shortness of breath Condition: Stable Record reviewed to determine appropriate education?: Yes Instructions: ED Upper Resp Infec Abx Tx Follow-Up: David Kwon MD [Primary Care Provider] - Prescriptions: Albuterol Sulf [Ventolin Hfa Inhaler] 1 - 2 puffs INH Q4HR PRN #1 inhaler PRN Reason: Shortness Of Air/Wheezing Albuterol 2.5 mg INH Q4H PRN #30 neb PRN Reason: Wheezing Benzonatate [Tessalon Perle] 100 mg PO TID PRN #30 capsule PRN Reason: Cough dexAMETHasone [Decadron] 4 mg PO DAILY #7 tablet Doxycycline Hyclate 100 mg PO BID #14 capsule Hydrocodone/Acetaminophen [[place] 5-325 Tablet] 1 each PO Q6H PRN #15 tablet PRN Reason: Pain Ondansetron Odt [Zofran] 4 mg TL Q6H PRN #15 tablet PRN Reason: Nausea / Vomiting Comments: Small frequent fluids and stay well-hydrated. Regular diet. Ondansetron if needed for nausea. Tessalon if needed for cough. Continue Tylenol or ibuprofen if needed for fevers. Add pain medicine if needed for headaches or cough. Use the albuterol nebulizer that you have at home 4 times a day for the next several days to week. Add extra treatments or use your inhaler if needed for wheezing and cough as well. Doxycycline antibiotic for possible bacterial component. Recheck if not improving well over the next couple of days and return sooner if worsening. Discharge Date/Time: 02/22/19 17:17
[2019-02-22] MEDS ORDERED: SODIUM CHLORIDE 0.9% 1,000 ML IV ONE (14:41)
[2019-02-22] MEDS ORDERED: ALBUTEROL NEB 2.5 MG/3 ML INH STA (14:41)
[2019-02-22] MEDS ORDERED: DEXAMETHASONE 10 MG/ML VIAL IVP STA (14:42)
[2019-02-22] MEDS ORDERED: BENZONATATE 100 MG CAPSULE PO STA (14:42)
[2019-02-22] MEDS ORDERED: ONDANSETRON 4 MG/2 ML VIAL IVP STA (14:42)
[2019-02-22] MEDS ORDERED: MORPHINE 10 MG/ML VIAL IVP STA (14:42)
[2019-02-22] MEDS ORDERED: KETOROLAC 30 MG/ML VIAL IVP STA (14:42)
[2019-02-22] MEDS ORDERED: DOXYCYCLINE 100 MG TABLET PO STA (14:43)
[2019-02-22 17:10] VITALS: BP 149/90
== END 2019-02-22 17:17 | disposition home or self-care (01) ==
LOC: ED 13:48
DX: J22 Unspecified acute lower respiratory infection (principal)
CPT/HCPCS: 94640; 96361; 96374; 96375; 99284; 99285; A9270

== ENCOUNTER 2019-07-24 09:00 | Outpatient (CLI) | payer MEDICAID ==
[2019-07-24 09:27] LABS: ALBUMIN 4.3 g/dL (3.2-5.5); ALBUMIN/GLOBULIN RATIO 1.3 (1.0-2.2); BILIRUBIN,TOTAL 0.7 mg/dL (0.2-1.0); CALCIUM 9.2 mg/dL (8.5-10.3); CREATININE 0.8 mg/dL (0.6-1.2); TOTAL PROTEIN 7.5 g/dL (6.7-8.2)
[2019-07-24 10:23] LABS: BASOPHILS % (AUTO) 0.5 %; EOSINOPHILS # (AUTO) 0.2 10^3/uL (0.0-0.7); EOSINOPHILS % (AUTO) 1.8 %; HGB - HEMOGLOBIN 15.4 g/dL (14.0-18.0); LYMPHOCYTES # (AUTO) 2.7 10^3/uL (1.5-3.5); LYMPHOCYTES % (AUTO) 33.5 %; MEAN CORPUSCULAR HEMOGLOBIN 28.4 pg (27.0-31.0); MEAN CORPUSCULAR HGB CONC 32.2 g/dL (32.0-36.0); MEAN CORPUSCULAR VOLUME 88.4 fL (80.0-94.0); MEAN PLATELET VOLUME 11.3 fL (7.4-11.4); MONOCYTES # (AUTO) 0.7 10^3/uL (0.0-1.0); NEUTROPHILS # (AUTO) 4.4 10^3/uL (1.5-6.6); NEUTROPHILS % (AUTO) 54.7 %; PLT - PLATELET COUNT 267 10^3/uL (130-450); RED BLOOD COUNT 5.42 10^6/uL (4.70-6.10); RED CELL DISTRIBUTION WIDTH 13.3 % (12.0-15.0); WHITE BLOOD COUNT 8.1 x10^3/uL (4.8-10.8)
== END 2019-07-24 09:01 | disposition home or self-care (01) ==
LOC: LAB 09:00
PROVIDERS: ATTEND Family Medicine
DX: G44.309 Post-traumatic headache, unspecified, not intractable (principal)
CPT/HCPCS: 36415; 80053; 85025; 85651

== ENCOUNTER 2020-06-04 09:30 | Emergency (ER) | payer MEDICAID ==
[2020-06-04 09:49] LABS: BASOPHILS # (AUTO) 0.1 10^3/uL (0.0-0.1); BASOPHILS % (AUTO) 1.1 %; EOSINOPHILS # (AUTO) 0.2 10^3/uL (0.0-0.7); EOSINOPHILS % (AUTO) 2.4 %; HGB - HEMOGLOBIN 14.8 g/dL (14.0-18.0); LYMPHOCYTES # (AUTO) 2.7 10^3/uL (1.5-3.5); LYMPHOCYTES % (AUTO) 40.5 %; MEAN CORPUSCULAR HEMOGLOBIN 30.6 pg (27.0-31.0); MEAN CORPUSCULAR HGB CONC 33.3 g/dL (32.0-36.0); MEAN CORPUSCULAR VOLUME 91.9 fL (80.0-94.0); MEAN PLATELET VOLUME 10.8 fL (7.4-11.4); MONOCYTES # (AUTO) 0.7 10^3/uL (0.0-1.0); MONOCYTES % (AUTO) 10.2 %; NEUTROPHILS % (AUTO) 45.5 %; PLT - PLATELET COUNT 256 10^3/uL (130-450); RED BLOOD COUNT 4.83 10^6/uL (4.70-6.10); RED CELL DISTRIBUTION WIDTH 13.2 % (12.0-15.0); WHITE BLOOD COUNT 6.6 x10^3/uL (4.8-10.8)
[2020-06-04 09:59] LABS: CALCIUM 9.9 mg/dL (8.5-10.3)
--- NOTE | 2020-06-04 10:05 | ED Physician Documentation ---
PD HPI CHEST PAIN - Stated complaint Stated Complaint: ABNORMAL EKG - Chief complaint Chief Complaint: Cardiac - History obtained from History obtained from: Patient - Additional information Additional information: 40-year-old gentleman with history of subarachnoid hemorrhage but no history of heart disease went to his doctor's office today. It was mostly routine visits but over the last 3 weeks has had increasing panic attacks which are associated with some chest pressure. Currently no chest pain. They did an EKG in the office which was noted to be abnormal and he was sent here. The EKG from the office does not accompany him. No current chest pain. Review of Systems Constitutional: denies: Fever, Chills, Fatigue Cardiac: denies: Palpitations, Pedal edema, Calf pain Respiratory: denies: Dyspnea, Cough, Hemoptysis, Wheezing PD PAST MEDICAL HISTORY - Past Medical History Cardiovascular: Hypertension, High cholesterol Respiratory: None Neuro: CVA Endocrine/Autoimmune: None GI: None : Kidney stones HEENT: None Psych: Depression Musculoskeletal: None, Chronic back pain Derm: None Other Past Medical History: SAH 22 months ago per pt. - Past Surgical History Past Surgical History: Yes HEENT: Myringotomy (tubes), Tonsil/Adenoidectomy - Present Medications Home Medications: Ambulatory Orders Medication Instructions Recorded Confirmed Cetirizine [ZyrTEC] 10 mg PO DAILY PRN 10/03/14 04/19/15 Cholecalciferol (Vitamin D3) 5,000 unit ORAL DAILY 10/03/14 04/19/15 [Vitamin D3] Citalopram [CeleXA] 40 mg ORAL DAILY 10/03/14 04/19/15 Testosterone Cypionate 100 mg IM 04/19/15 04/19/15 [Depo-Testosterone] Cyclobenzaprine [Flexeril] 10 mg PRN 06/17/18 Hydrocodone/Acetaminophen 1 - 2 each PO Q6H PRN #14 tablet 06/17/18 [Hydrocodon-Acetaminophen 5-325] Meloxicam [Mobic] 15 mg PO DAILY PRN #20 tablet 06/17/18 Gabapentin 300 mg PO TID 08/07/18 Albuterol 2.5 mg INH Q4H PRN #30 neb 02/22/19 Albuterol Sulf [Ventolin Hfa 1 - 2 puffs INH Q4HR PRN #1 inhaler 07/18/19 Inhaler] Benzonatate [Tessalon Perle] 100 mg PO TID PRN #30 capsule 02/22/19 Doxycycline Hyclate 100 mg PO BID #14 capsule 02/22/19 Hydrocodone/Acetaminophen [[place] 1 each PO Q6H PRN #15 tablet 02/22/19 5-325 Tablet] Ondansetron Odt [Zofran] 4 mg TL Q6H PRN #15 tablet 02/22/19 dexAMETHasone [Decadron] 4 mg PO DAILY #7 tablet 02/22/19 - Allergies Allergies/Adverse Reactions: Allergies Allergy/AdvReac Type Severity Reaction Status Date / Time Penicillins Allergy Severe Rash Verified 06/04/20 09:47 venom-honey bee Allergy Severe Hives Verified 06/04/20 09:47 [bee venom (honey bee)] - Social History Does the pt smoke?: No Smoking Status: Never smoker Does the pt drink ETOH?: Yes Does the pt have substance abuse?: No - Immunizations Immunizations are current?: Yes - POLST Patient has POLST: No PD ED PE NORMAL - Vitals Vital signs reviewed: Yes - General General: Alert and oriented X 3, No acute distress - Neck Neck: Supple, no meningeal sign, No bony TTP - Cardiac Cardiac: RRR, No murmur - Respiratory Respiratory: No respiratory distress, Clear bilaterally - Abdomen Abdomen: Non tender - Neuro Neuro: Alert and oriented X 3, Normal speech Results - Vitals Vitals: Vital Signs - 24 hr 06/04/20 06/04/20 06/04/20 09:35 10:00 10:15 Temperature 36.2 C L Heart Rate 61 64 62 Respiratory 14 20 18 Rate Blood Pressure 163/103 H 142/101 H 148/105 H O2 Saturation 100 98 100 06/04/20 06/04/20 10:30 12:07 Temperature Heart Rate 65 64 Respiratory 18 18 Rate Blood Pressure 138/108 H 151/106 H O2 Saturation 99 99 Oxygen O2 Source Room air - EKG (time done) 0934 Rate: Rate (enter#) (62) Rhythm: NSR [place]: Normal, LAD Intervals: Other (IVCD) Ischemia: Q waves (inferior) Compare to prior EKG: Unchanged from prior EKG (comp with EMS EKG 08/06/18) Computer interpretation: Agree with computer - Labs Labs: Laboratory Tests 06/04/20 06/04/20 06/04/20 09:35 09:35 09:35 WBC 6.6 RBC 4.83 Hgb 14.8 Hct 44.4 MCV 91.9 MCH 30.6 MCHC 33.3 RDW 13.2 Plt Count 256 MPV 10.8 Neut # (Auto) 3.0 Lymph # (Auto) 2.7 [place] # (Auto) 0.7 Eos # (Auto) 0.2 Baso # (Auto) 0.1 Absolute Nucleated RBC 0.00 Nucleated RBC % 0.0 Sodium 146 H Potassium 4.1 Chloride 108 Carbon Dioxide 30 Anion Gap 8.0 BUN 16 Creatinine 1.0 Estimated GFR (MDRD) 82 L Glucose 98 Calcium 9.9 Troponin I High Sens 2.5 PD MEDICAL DECISION MAKING - ED course ED course: 40yo male with panic associ CP, sent from clinic for abnormal EKG which does not accompany him. EKG here with no change from 2 years ago. Prelim echo nl except mild LVH. Departure - Departure Disposition: 01 Home, Self Care Clinical Impression: Abnormal EKG Condition: Good Record reviewed to determine appropriate education?: Yes Instructions: ED Chest Pain Atypical Unkn Cause Comments: EKG is unchanged from 2 years ago. Echo normal except mild left ventricular hypertrophy make sure your BP is controlled. Return if worse. Followup with your MD. Discharge Date/Time: 06/04/20 12:11
[2020-06-04 12:08] VITALS: BP 151/106
== END 2020-06-04 12:11 | disposition home or self-care (01) ==
LOC: ED 09:30
DX: R94.31 Abnormal electrocardiogram [ECG] [EKG] (principal); R07.89 Other chest pain; I10 Essential (primary) hypertension; I25.2 Old myocardial infarction
CPT/HCPCS: 36415; 80048; 84484; 85025; 93005; 93306; 99284

== ENCOUNTER 2020-07-09 11:15 | Outpatient (CLI) | payer MEDICAID ==
[2020-07-09 12:58] LABS: ALBUMIN 4.7 g/dL (3.2-5.5); ALBUMIN/GLOBULIN RATIO 1.5 (1.0-2.2); ALKALINE PHOSPHATASE 67 IU/L (42-121); ALT ALANINE AMINOTRANSFERASE 27 IU/L (10-60); AST ASPARTATE AMINOTRANSFERASE 23 IU/L (10-42); BILIRUBIN,TOTAL 0.9 mg/dL (0.2-1.0); BUN - BLOOD UREA NITROGEN 13 mg/dL (6-20); CALCIUM 9.7 mg/dL (8.5-10.3); CARBON DIOXIDE - CO2 25 mmol/L (21-32); CHLORIDE 104 mmol/L (101-111); CHOL/HDL RATIO 8.2 (<5.0); CHOLESTEROL 222 mg/dL; CREATININE 0.9 mg/dL (0.6-1.2); GLUCOSE 91 mg/dL (70-100); HDL CHOLESTEROL 27 mg/dL; LDL CHOLESTEROL,CALCULATED 162 mg/dL; SODIUM 139 mmol/L (135-145); TOTAL PROTEIN 7.8 g/dL (6.7-8.2); VLDL CHOLESTEROL 33 mg/dL
== END 2020-07-09 11:16 | disposition home or self-care (01) ==
LOC: LAB 11:15
PROVIDERS: ATTEND Nurse Practitioner Family
DX: I10 Essential (primary) hypertension (principal); E78.5 Hyperlipidemia, unspecified; E29.1 Testicular hypofunction
CPT/HCPCS: 36415; 80053; 80061; 81599; 83721; 84402; 84403; 84443

== ENCOUNTER 2020-12-27 14:50 | Emergency (ER) | payer MEDICAID ==
--- NOTE | 2020-12-27 15:14 | ED Physician Documentation ---
PD HPI CHEST PAIN - Stated complaint Stated Complaint: HIGH BP,FAST HEART RATE - History obtained from History obtained from: Patient - Additional information Additional information: 40-year-old gentleman with history of anxiety, hypertension, and subarachnoid hemorrhage 2 years ago had just gotten back from a long car trip to [place] About an hour and a half ago and he started to develop anxiety, shakiness, mild chest discomfort. Was taking his blood pressure repeatedly at home and it was trending up over 180 systolic. Denies shortness of breath, pedal edema or calf pain. Review of Systems Ten Systems: 10 systems reviewed and negative Constitutional: reports: Fatigue (From long drive) Nose: denies: Rhinorrhea / runny nose Throat: denies: Sore throat Cardiac: reports: Chest pain / pressure, Palpitations. denies: Pedal edema, Calf pain Respiratory: denies: Dyspnea, Cough PD PAST MEDICAL HISTORY - Past Medical History Cardiovascular: Hypertension, High cholesterol Respiratory: None Neuro: CVA Endocrine/Autoimmune: None GI: None : Kidney stones HEENT: None Psych: Depression Musculoskeletal: None, Chronic back pain Derm: None - Past Surgical History Past Surgical History: Yes HEENT: Myringotomy (tubes), Tonsil/Adenoidectomy - Present Medications Home Medications: Ambulatory Orders Medication Instructions Recorded Confirmed Cetirizine [ZyrTEC] 10 mg PO DAILY PRN 10/03/14 12/27/20 Cholecalciferol (Vitamin D3) 5,000 unit ORAL DAILY 10/03/14 12/27/20 [Vitamin D3] Cyclobenzaprine [Flexeril] 10 mg ORAL TID PRN 06/17/18 Hydrocodone/Acetaminophen 1 - 2 each PO Q6H PRN #14 tablet 06/17/18 12/27/20 [Hydrocodon-Acetaminophen 5-325] Buspirone HCl 7.5 mg PO BID 12/27/20 12/27/20 Duloxetine HCl [Cymbalta] 60 mg PO DAILY 12/27/20 12/27/20 SUMAtriptan [Imitrex] 25 mg PO ONCE PRN 12/27/20 12/27/20 Verapamil [Calan] 40 mg PO TID 12/27/20 12/27/20 clonazePAM [Clonazepam] 1 mg PO BID PRN 12/27/20 12/27/20 - Allergies Allergies/Adverse Reactions: Allergies Allergy/AdvReac Type Severity Reaction Status Date / Time Penicillins Allergy Severe Rash Verified 12/27/20 15:14 venom-honey bee Allergy Severe Hives Verified 12/27/20 15:14 [bee venom (honey bee)] - Social History Does the pt smoke?: No Smoking Status: Never smoker Does the pt drink ETOH?: Yes Does the pt have substance abuse?: No - Immunizations Immunizations are current?: Yes - POLST Patient has POLST: No PD ED PE NORMAL - Vitals Vital signs reviewed: Yes - General General: Alert and oriented X 3, No acute distress, Other (Mildly anxious and he takes a clonazepam that he has with him.) - HEENT HEENT: PERRL, EOMI - Neck Neck: Supple, no meningeal sign, No bony TTP - Cardiac Cardiac: RRR, No murmur - Respiratory Respiratory: No respiratory distress, Clear bilaterally - Abdomen Abdomen: Soft, Non tender - Derm Derm: Normal color, Warm and dry - Extremities Extremities: No edema, No calf tenderness / cord - Neuro Neuro: Alert and oriented X 3, Normal speech Results - Vitals Vitals: Vital Signs - 24 hr 12/27/20 12/27/20 12/27/20 15:09 15:46 16:11 Temperature 37.2 C Heart Rate 82 87 84 Respiratory 13 16 22 Rate Blood Pressure 175/120 H 166/106 H 172/110 H O2 Saturation 98 93 95 12/27/20 17:32 Temperature 36.7 C Heart Rate 84 Respiratory 22 Rate Blood Pressure 174/110 H O2 Saturation 97 Oxygen O2 Source Room air - EKG (time done) 1455 Rate: Rate (enter#) (78) Rhythm: NSR [place]: LAD Intervals: Other (IVCD) Ischemia: Normal ST segments Compare to prior EKG: Unchanged from prior EKG - Labs Labs: Laboratory Tests 12/27/20 12/27/20 12/27/20 15:28 15:28 15:28 WBC 6.3 RBC 5.07 Hgb 15.6 Hct 45.3 MCV 89.3 MCH 30.8 MCHC 34.4 RDW 12.9 Plt Count 292 MPV 10.7 Neut # (Auto) 3.2 Lymph # (Auto) 2.1 [place] # (Auto) 0.8 Eos # (Auto) 0.2 Baso # (Auto) 0.1 Absolute Nucleated RBC 0.00 Nucleated RBC % 0.0 D-Dimer 479.5 H Sodium 144 Potassium 3.6 Chloride 106 Carbon Dioxide 26 Anion Gap 12.0 BUN 15 Creatinine 0.9 Estimated GFR (MDRD) 93 Glucose 88 Calcium 9.5 Total Bilirubin 0.7 AST 21 ALT 26 Alkaline Phosphatase 64 Troponin I High Sens Total Protein 7.7 Albumin 4.8 Globulin 2.9 Albumin/Globulin Ratio 1.7 Lipase 50 12/27/20 15:28 WBC RBC Hgb Hct MCV MCH MCHC RDW Plt Count MPV Neut # (Auto) Lymph # (Auto) [place] # (Auto) Eos # (Auto) Baso # (Auto) Absolute Nucleated RBC Nucleated RBC % D-Dimer Sodium Potassium Chloride Carbon Dioxide Anion Gap BUN Creatinine Estimated GFR (MDRD) Glucose Calcium Total Bilirubin AST ALT Alkaline Phosphatase Troponin I High Sens 4.9 Total Protein Albumin Globulin Albumin/Globulin Ratio Lipase PD MEDICAL DECISION MAKING - ED course ED course: 40-year-old gentleman with tachycardia and hypertension as well as jitteriness and chest pain most closely consistent with anxiety but after a long car trip D- dimer was checked and positive followed by CT angiography of the chest which was negative. Departure - Departure Disposition: Home, Self Care Clinical Impression: Atypical chest pain Hypertension Qualifiers: Hypertension type: essential hypertension Qualified Code(s): I10 - Essential (primary) hypertension Condition: Good Record reviewed to determine appropriate education?: Yes Instructions: ED Chest Pain NonCardiac Comments: Continue current medications. Follow-up with your doctor next week for recheck. Return for new or worsening symptoms.
[2020-12-27 15:37] LABS: BASOPHILS # (AUTO) 0.1 10^3/uL (0.0-0.1); BASOPHILS % (AUTO) 1.1 %; EOSINOPHILS # (AUTO) 0.2 10^3/uL (0.0-0.7); EOSINOPHILS % (AUTO) 2.6 %; HCT - HEMATOCRIT 45.3 % (42.0-52.0); HGB - HEMOGLOBIN 15.6 g/dL (14.0-18.0); LYMPHOCYTES # (AUTO) 2.1 10^3/uL (1.5-3.5); LYMPHOCYTES % (AUTO) 33.4 %; MEAN CORPUSCULAR HEMOGLOBIN 30.8 pg (27.0-31.0); MEAN CORPUSCULAR HGB CONC 34.4 g/dL (32.0-36.0); MEAN CORPUSCULAR VOLUME 89.3 fL (80.0-94.0); MEAN PLATELET VOLUME 10.7 fL (7.4-11.4); MONOCYTES # (AUTO) 0.8 10^3/uL (0.0-1.0); MONOCYTES % (AUTO) 12.1 %; NEUTROPHILS # (AUTO) 3.2 10^3/uL (1.5-6.6); NEUTROPHILS % (AUTO) 50.5 %; PLT - PLATELET COUNT 292 10^3/uL (130-450); RED BLOOD COUNT 5.07 10^6/uL (4.70-6.10); RED CELL DISTRIBUTION WIDTH 12.9 % (12.0-15.0); WHITE BLOOD COUNT 6.3 x10^3/uL (4.8-10.8)
[2020-12-27 15:48] LABS: ALBUMIN 4.8 g/dL (3.2-5.5); ALBUMIN/GLOBULIN RATIO 1.7 (1.0-2.2); BILIRUBIN,TOTAL 0.7 mg/dL (0.2-1.0); CALCIUM 9.5 mg/dL (8.5-10.3); CREATININE 0.9 mg/dL (0.6-1.2); POTASSIUM 3.6 mmol/L (3.5-5.0); TOTAL PROTEIN 7.7 g/dL (6.7-8.2)
[2020-12-27] MEDS ORDERED: IOVERSOL 320 100 ML VIAL IVP ONE ×2 (16:15→17:00)
--- NOTE | 2020-12-27 16:53 | XRAY Report ---
PROCEDURE: Chest 1 View X-Ray INDICATIONS: Chest Pain TECHNIQUE: One view of the chest was acquired. COMPARISON: None. FINDINGS: Surgical changes and devices: None. Lungs and pleura: No pleural effusions or pneumothorax. Lungs are clear. Mediastinum: Mediastinal contours appear normal. Heart size is normal. Bones and chest wall: No suspicious bony lesions. Overlying soft tissues appear unremarkable. IMPRESSION: Chest without acute cardiopulmonary abnormalities. Reviewed by: Marquis Borges MD on 12/27/2020 4:51 PM PDT Approved by: Marquis Borges MD on 12/27/2020 4:51 PM PDT Station ID: [id number]
--- NOTE | 2020-12-27 17:35 | CT Report ---
PROCEDURE: ANGIO CHEST W/WO INDICATIONS: chest pain, high dimer, pe protocol CONTRAST: IV CONTRAST: Optiray 320 ml: 80 PO CONTRAST: *NO PO CONTRAST TECHNIQUE: After the administration of intravenous contrast, 2 mm thick sections acquired from the pulmonary api nola to the posterior costophrenic angles. 3-dimensional maximum intensity projection (MIP) coronal a nd sagittal reformats were then acquired through the thorax. For radiation dose reduction, the follow ing was used: automated exposure control, adjustment of mA and/or kV according to patient size. COMPARISON: Correlation is made with the accompanying chest x-ray, 12/27/2020. Correlation is made wi th the overlapping portions of the abdomen and pelvis CT, 03/18/2016. FINDINGS: Image quality: Excellent. Pulmonary arteries: Pulmonary arteries are normal in size, and demonstrate no intraluminal filling d efects to suggest central pulmonary embolism. Lungs and pleura: Lungs are clear. No pleural effusions or pneumothorax. Central and peripheral ai rways are patent. Mediastinum: Heart size is normal, without pericardial effusion. No mediastinal or hilar adenopathy . Thoracic aorta is normal in caliber and enhancement. Esophagus is normal in caliber, without hiat al hernia. Bones and chest wall: No suspicious bony lesions. Ribs and thoracic spine appear intact throughout. No axillary or supraclavicular adenopathy. The thyroid is normal in size and there are no incident al findings. Abdomen: Visualized upper abdominal solid organs appear normal in the early arterial phase of enhanc ement. IMPRESSION: No definite pulmonary emboli are seen. Reviewed by: Luciano Vega MD on 12/27/2020 4:34 PM SARAH Approved by: Luciano Vega MD on 12/27/2020 4:34 PM SARAH Station ID: [id number]
[2020-12-27 19:09] VITALS: BP 174/110
== END 2020-12-27 17:52 | disposition home or self-care (01) ==
LOC: ED 14:50
DX: I10 Essential (primary) hypertension (principal); R07.89 Other chest pain; R00.0 Tachycardia, unspecified; I25.2 Old myocardial infarction
CPT/HCPCS: 36415; 71045; 71275; 80053; 83690; 84484; 85025; 85379; 93005; 99284; Q9967

== ENCOUNTER 2021-07-30 08:00 | Outpatient (CLI) | payer MEDICAID ==
[2021-07-30 12:26] LABS: BASOPHILS # (AUTO) 0.1 10^3/uL (0.0-0.1); BASOPHILS % (AUTO) 0.8 %; EOSINOPHILS # (AUTO) 0.1 10^3/uL (0.0-0.7); EOSINOPHILS % (AUTO) 1.9 %; HCT - HEMATOCRIT 48.5 % (42.0-52.0); HGB - HEMOGLOBIN 15.9 g/dL (14.0-18.0); LYMPHOCYTES # (AUTO) 2.1 10^3/uL (1.5-3.5); LYMPHOCYTES % (AUTO) 34.9 %; MEAN CORPUSCULAR HEMOGLOBIN 29.6 pg (27.0-31.0); MEAN CORPUSCULAR HGB CONC 32.8 g/dL (32.0-36.0); MEAN CORPUSCULAR VOLUME 90.3 fL (80.0-94.0); MEAN PLATELET VOLUME 10.9 fL (7.4-11.4); MONOCYTES # (AUTO) 0.8 10^3/uL (0.0-1.0); MONOCYTES % (AUTO) 13.2 %; NEUTROPHILS # (AUTO) 2.9 10^3/uL (1.5-6.6); NEUTROPHILS % (AUTO) 48.9 %; PLT - PLATELET COUNT 301 10^3/uL (130-450); RED BLOOD COUNT 5.37 10^6/uL (4.70-6.10); RED CELL DISTRIBUTION WIDTH 12.5 % (12.0-15.0); WHITE BLOOD COUNT 5.9 x10^3/uL (4.8-10.8)
[2021-07-30 12:43] LABS: ALBUMIN 4.5 g/dL (3.2-5.5); ALBUMIN/GLOBULIN RATIO 1.3 (1.0-2.2); ALKALINE PHOSPHATASE 50 IU/L (42-121); ALT ALANINE AMINOTRANSFERASE 33 IU/L (10-60); AST ASPARTATE AMINOTRANSFERASE 26 IU/L (10-42); BUN - BLOOD UREA NITROGEN 14 mg/dL (6-20); CALCIUM 9.6 mg/dL (8.5-10.3); CARBON DIOXIDE - CO2 27 mmol/L (21-32); CHLORIDE 104 mmol/L (101-111); CHOL/HDL RATIO 4.8 (<5.0); CHOLESTEROL 110 mg/dL; CREATININE 0.9 mg/dL (0.6-1.2); GFR - MDRD 92 (>89); GLUCOSE 103 mg/dL (70-100); HDL CHOLESTEROL 23 mg/dL; LDL CHOLESTEROL,CALCULATED 68 mg/dL; POTASSIUM 3.4 mmol/L (3.5-5.0); SODIUM 140 mmol/L (135-145); TRIGLYCERIDES 94 mg/dL; VLDL CHOLESTEROL 19 mg/dL
[2021-07-30 12:54] LABS: THYROID STIMULATING HORMONE 0.99 uIU/mL (0.34-5.60)
== END 2021-07-30 23:59 | disposition home or self-care (01) ==
LOC: LAB.WCP 08:00
PROVIDERS: ATTEND Family Medicine
DX: G47.9 Sleep disorder, unspecified (principal); G44.009 Cluster headache syndrome, unspecified, not intractable; G44.309 Post-traumatic headache, unspecified, not intractable; J45.991 Cough variant asthma; I10 Essential (primary) hypertension; E78.5 Hyperlipidemia, unspecified; F41.0 Panic disorder [episodic paroxysmal anxiety]; E29.1 Testicular hypofunction
CPT/HCPCS: 36415; 80050; 80061; 83721; 84153

== ENCOUNTER 2021-10-16 13:48 | Outpatient (CLI) | payer MEDICAID ==
[2021-10-16] MEDS ORDERED: IOVERSOL 320 100 ML VIAL IVP ONE ×2 (14:19→15:19)
[2021-10-16 14:50] LABS: ALBUMIN 4.6 g/dL (3.2-5.5); ALBUMIN/GLOBULIN RATIO 1.5 (1.0-2.2); BILIRUBIN,TOTAL 0.7 mg/dL (0.2-1.0); CALCIUM 9.5 mg/dL (8.5-10.3); CREATININE 1.1 mg/dL (0.6-1.2); POTASSIUM 3.8 mmol/L (3.5-5.0); TOTAL PROTEIN 7.6 g/dL (6.7-8.2)
--- NOTE | 2021-10-16 16:38 | CT Report ---
PROCEDURE: ANGIO HEAD W/WO INDICATIONS: CEREBRAL ANEURYSM NONRUPTURED CONTRAST: IV CONTRAST: Optiray 320 ml: 80 PO CONTRAST: *NO PO CONTRAST TECHNIQUE: Precontrast 4.5 mm thick angled axial sections acquired from the foramen magnum to the vertex. Afte r the administration of intravenous contrast, 1 mm thick sections acquired through the [place] is. Postcontrast 4.5 mm thick sections then re-acquired from the foramen magnum to the vertex. 3-di mensional uwhyiov-bvymzfccd-umprnclajx (MIP) and/or volume rendering reformats were acquired of the c entral intracranial vasculature. For radiation dose reduction, the following was used: automated ex posure control, adjustment of mA and/or kV according to patient size. COMPARISON: 08/06/2018 FINDINGS: Image quality: Excellent. No narrowing, occlusion, or aneurysm of the internal carotid arteries, anterior cerebral arteries, or middle cerebral arteries. Previously questioned right P1 segment aneurysm is no longer identified. No aneurysm elsewhere in the posterior circulation. The vessels opacify normally with no evidence of narrowing or occlusion. No acute intracranial hemorrhage, abnormal extra axial fluid collection, mass effect, or midline shif t. Normal ventricular caliber and position. Patent basilar cisterns. No gross orbital abnormality. Cl ear paranasal sinuses and mastoid air cells. No significant osseous abnormality. IMPRESSION: Previously questioned right P1 segment aneurysm is no longer demonstrated, likely artifactual on the prior study. Reviewed by: Woody Perez MD on 10/16/2021 4:37 PM PST Approved by: Woody Perez MD on 10/16/2021 4:37 PM PST Station ID: [id number]
== END 2021-10-16 13:49 | disposition home or self-care (01) ==
LOC: DI 13:48
PROVIDERS: ATTEND Internal Medicine
DX: Z09 Encounter for follow-up examination after completed treatment for conditions other than malignant neoplasm (principal); G44.009 Cluster headache syndrome, unspecified, not intractable; I10 Essential (primary) hypertension; Z86.79 Personal history of other diseases of the circulatory system
CPT/HCPCS: 36415; 70496; 80053; Q9967

== ENCOUNTER 2023-05-09 09:22 | Outpatient (CLI) | payer OTHER ==
[2023-05-09 09:49] LABS: BASOPHILS # (AUTO) 0.1 10^3/uL (0.0-0.1); BASOPHILS % (AUTO) 1.2 %; EOSINOPHILS # (AUTO) 0.1 10^3/uL (0.0-0.7); EOSINOPHILS % (AUTO) 2.1 %; HCT - HEMATOCRIT 44.9 % (42.0-52.0); HGB - HEMOGLOBIN 15.1 g/dL (14.0-18.0); LYMPHOCYTES # (AUTO) 2.7 10^3/uL (1.5-3.5); MEAN CORPUSCULAR HEMOGLOBIN 29.9 pg (27.0-31.0); MEAN CORPUSCULAR HGB CONC 33.6 g/dL (32.0-36.0); MEAN CORPUSCULAR VOLUME 88.9 fL (80.0-94.0); MEAN PLATELET VOLUME 10.3 fL (7.4-11.4); MONOCYTES # (AUTO) 0.6 10^3/uL (0.0-1.0); MONOCYTES % (AUTO) 8.2 %; NEUTROPHILS # (AUTO) 3.3 10^3/uL (1.5-6.6); NEUTROPHILS % (AUTO) 48.4 %; PLT - PLATELET COUNT 278 10^3/uL (130-450); RED BLOOD COUNT 5.05 10^6/uL (4.70-6.10); RED CELL DISTRIBUTION WIDTH 12.5 % (12.0-15.0); WHITE BLOOD COUNT 6.7 x10^3/uL (4.8-10.8)
[2023-05-09 10:24] LABS: PROLACTIN 30.4 ng/mL
== END 2023-05-09 09:23 | disposition home or self-care (01) ==
LOC: LAB 09:22
PROVIDERS: ATTEND Urology
DX: E29.1 Testicular hypofunction (principal)
CPT/HCPCS: 36415; 82670; 83002; 84146; 84403; 85025

== ENCOUNTER 2023-06-09 09:56 | Outpatient (CLI) | payer OTHER | END 2023-06-09 09:57 | disposition home or self-care (01) | LOC: LAB 09:56 | PROVIDERS: ATTEND Urology | DX: E29.1 Testicular hypofunction (principal) | CPT/HCPCS: 36415; 84403 ==

== ENCOUNTER 2023-06-20 14:42 | Outpatient (CLI) | payer OTHER ==
--- NOTE | 2023-06-20 20:32 | XRAY Report ---
PROCEDURE: Lumbar Spine Complete INDICATIONS: LOW BACK PAIN TECHNIQUE: 4 view(s) of the lumbar spine were acquired. COMPARISON: None. FINDINGS: Bones: Vertebral body height and alignment is maintained. No suspicious bony lesions. Both oblique i mages are unremarkable Soft tissues: Overlying bowel gas pattern is normal. No suspicious soft tissue calcifications. IMPRESSION: Unremarkable lumbar spine radiographs Reviewed by: Ac Hanna MD on 06/20/2023 7:31 PM [place] Approved by: Ac Hanna MD on 06/20/2023 7:31 PM [place] Station ID: [id number]
== END 2023-06-20 14:43 | disposition home or self-care (01) ==
LOC: DI 14:42
PROVIDERS: ATTEND Anesthesiology
DX: M54.50 Low back pain, unspecified (principal)

== ENCOUNTER 2023-07-09 10:37 | Outpatient (CLI) | payer OTHER | END 2023-07-09 10:38 | disposition home or self-care (01) | LOC: LAB 10:37 | PROVIDERS: ATTEND Urology | DX: E29.1 Testicular hypofunction (principal) | CPT/HCPCS: 36415; 84403 ==

== ENCOUNTER 2023-11-07 23:29 | Emergency (ER) | payer OTHER ==
[2023-11-08 00:47] LABS: BASOPHILS # (AUTO) 0.1 10^3/uL (0.0-0.1); EOSINOPHILS # (AUTO) 0.1 10^3/uL (0.0-0.7); EOSINOPHILS % (AUTO) 1.5 %; HCT - HEMATOCRIT 45.5 % (42.0-52.0); LYMPHOCYTES % (AUTO) 37.7 %; MEAN CORPUSCULAR HEMOGLOBIN 28.6 pg (27.0-31.0); MEAN CORPUSCULAR VOLUME 86.8 fL (80.0-94.0); MEAN PLATELET VOLUME 10.3 fL (7.4-11.4); MONOCYTES % (AUTO) 12.6 %; NEUTROPHILS # (AUTO) 3.7 10^3/uL (1.5-6.6); NEUTROPHILS % (AUTO) 46.9 %; PLT - PLATELET COUNT 258 10^3/uL (130-450); RED BLOOD COUNT 5.24 10^6/uL (4.70-6.10); RED CELL DISTRIBUTION WIDTH 13.7 % (12.0-15.0); WHITE BLOOD COUNT 7.9 x10^3/uL (4.8-10.8)
--- NOTE | 2023-11-08 00:50 | ED Physician Documentation ---
History of Present Illness - Stated complaint Stated Complaint: HIGH BP - Chief complaint Chief Complaint: Cardiac - History obtained from History obtained from: Patient, Family - History of Present Illness Timing: How many days ago (2) - Additonal information Additional information: Tian Cruz is a 42 year-old male who has a history of subarachnoid hemorrhage related to hypertensive crisis resulting in stroke about 6 years ago. He has had some recent medication changes with his Ritalin and modafinil and he felt that these were causing a spike in his blood pressure. He has stopped taking the modafinil and he has talked to his primary and we will increase his dose of Ritalin back to 36 mg daily. Today when he measured a blood pressure of a diastolic of 137 he became concerned. This was within 20 minutes of taking his blood pressure medication his blood pressure did come down about an hour after taking his blood pressure medication. 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 He denies any alcohol use and denies recent excessive salt load. Review of Systems Constitutional: denies: Fever Eyes: denies: Decreased vision Ears: denies: Ear pain Nose: denies: Rhinorrhea / runny nose, Congestion Throat: denies: Sore throat Cardiac: denies: Chest pain / pressure, Palpitations Respiratory: denies: Dyspnea, Cough GI: denies: Abdominal Pain, Nausea, Vomiting, Constipation, Diarrhea : denies: Dysuria, Frequency Skin: denies: Rash Musculoskeletal: denies: Neck pain, Back pain, Extremity pain Neurologic: denies: Generalized weakness, Focal weakness, Numbness PD PAST MEDICAL HISTORY - Past Medical History Past Medical History: Yes Cardiovascular: Hypertension, High cholesterol Respiratory: None Neuro: CVA Endocrine/Autoimmune: None GI: None : Kidney stones HEENT: None Psych: Depression Musculoskeletal: None, Chronic back pain Derm: None - Past Surgical History Past Surgical History: Yes HEENT: Myringotomy (tubes), Tonsil/Adenoidectomy - Present Medications Home Medications: Ambulatory Orders Medication Instructions Recorded Confirmed Cetirizine [ZyrTEC] 10 mg PO DAILY PRN 10/03/14 12/27/20 Cholecalciferol (Vitamin D3) 5,000 unit ORAL DAILY 10/03/14 12/27/20 [Vitamin D3] Cyclobenzaprine [Flexeril] 10 mg ORAL TID PRN 06/17/18 Hydrocodone/Acetaminophen 1 - 2 each PO Q6H PRN #14 tablet 06/17/18 12/27/20 [Hydrocodon-Acetaminophen 5-325] Buspirone HCl 7.5 mg PO BID 12/27/20 12/27/20 Duloxetine HCl [Cymbalta] 60 mg PO DAILY 12/27/20 12/27/20 SUMAtriptan [Imitrex] 25 mg PO ONCE PRN 12/27/20 12/27/20 Verapamil [Calan] 40 mg PO TID 12/27/20 12/27/20 clonazePAM [Clonazepam] 1 mg PO BID PRN 12/27/20 12/27/20 - Allergies Allergies/Adverse Reactions: Allergies Allergy/AdvReac Type Severity Reaction Status Date / Time Penicillins Allergy Severe Rash Verified 11/07/23 23:32 venom-honey bee Allergy Severe Hives Verified 11/07/23 23:32 [bee venom (honey bee)] - Social History Does the pt smoke?: No Smoking Status: Never smoker Does the pt drink ETOH?: Yes Does the pt have substance abuse?: No - Immunizations Immunizations are current?: Yes - POLST Patient has POLST: No PD ED PE NORMAL - Vitals Vital signs reviewed: Yes (Hypertensive) - General General: Alert and oriented X 3, No acute distress, Well developed/nourished - HEENT HEENT: Atraumatic, PERRL, EOMI - Neck Neck: Supple, no meningeal sign, No bony TTP - Cardiac Cardiac: RRR, No murmur - Respiratory Respiratory: No respiratory distress, Clear bilaterally - Abdomen Abdomen: Normal bowel sounds, Soft, Non tender, Non distended, No organomegaly - Back Back: No CVA TTP, No spinal TTP - Derm Derm: Normal color, No rash - Extremities Extremities: No deformity, No edema - Neuro Neuro: Alert and oriented X 3, care mgr 2-12 intact, No motor deficit, No sensory deficit, Normal speech Eye Opening: Spontaneous Motor: Obeys Commands Verbal: Oriented GCS Score: 15 - Psych Psych: Normal mood, Normal affect Results - Vitals Vitals: Vital Signs - 24 hr 11/07/23 11/08/23 11/08/23 23:32 01:02 01:55 Temperature 36.8 C 36.4 C L Heart Rate 62 67 64 Respiratory 16 16 16 Rate Blood Pressure 177/95 H 144/92 H 146/84 H O2 Saturation 99 100 96 Oxygen O2 Source Room air - Labs Labs: Laboratory Tests 11/08/23 11/08/23 00:40 00:40 WBC 7.9 RBC 5.24 Hgb 15.0 Hct 45.5 MCV 86.8 MCH 28.6 MCHC 33.0 RDW 13.7 Plt Count 258 MPV 10.3 Neut # (Auto) 3.7 Lymph # (Auto) 3.0 [place] # (Auto) 1.0 Eos # (Auto) 0.1 Baso # (Auto) 0.1 Absolute Nucleated RBC 0.00 Nucleated RBC % 0.0 Sodium 140 Potassium 3.3 L Chloride 107 Carbon Dioxide 26 Anion Gap 7.0 BUN 13 Creatinine 0.9 Estimated GFR (MDRD) 91 Glucose 86 Calcium 9.6 Total Bilirubin 0.8 AST 17 ALT 20 Alkaline Phosphatase 48 Total Protein 7.0 Albumin 4.3 Globulin 2.7 Albumin/Globulin Ratio 1.6 Lipase 53 Procedures - IVC sono (time) 0030 Bedside IVC sono: IVC measures (cm) (1.42), Euvolemia (near) PD Medical Decision Making - ED course Complexity details: reviewed old records, reviewed results, re-evaluated patient, considered differential, d/w patient, d/w family Reviewed Lab Results: We reviewed a complete blood count showing a normal white blood cell count normal hemoglobin hematocrit and platelets and normal indices. Chemistries showed a 6 serum potassium at 3.3. Remainder of electrolytes kidney and liver function all tested normally. I interpreted these to indicate a minimal level of hypokalemia and administered the patient 20 mill equivalents of potassium. These laboratory values did not contribute to a specific diagnosis related to hypertension. They were reassuring for a benign process. ED course: 43-year-old male with a history of hypertension and a prior subarachnoid hemorrhage related to hypertension had a spike in his blood pressure today became concerned and came to the emergency department for evaluation. He did take his blood pressure medication his blood pressure has come back down to normal. He is administered a single dose of potassium 20 mill equivalents for a potassium of 3.3. Departure - Departure Disposition: 01 Home, Self Care Clinical Impression: Hypokalemia Hypertension Qualifiers: Hypertension type: unspecified Qualified Code(s): I10 - Essential (primary) hypertension Condition: Stable Instructions: ED HTN Established, ED Potassium Deficiency Follow-Up: David Kwon MD [Primary Care Provider] - Comments: Tian, today it looks like your blood pressure was elevated and after taking your medication it appears stabilized. Follow up with your primary care doctor for any adjustments to your medications. Forms: PCP List Discharge Date/Time: 11/08/23 01:55
[2023-11-08 01:06] LABS: ALBUMIN 4.3 g/dL (3.2-5.5); ALBUMIN/GLOBULIN RATIO 1.6 (1.0-2.2); BILIRUBIN,TOTAL 0.8 mg/dL (0.2-1.0); CALCIUM 9.6 mg/dL (8.5-10.3); CREATININE 0.9 mg/dL (0.6-1.3); POTASSIUM 3.3 mmol/L (3.5-4.5)
[2023-11-08] MEDS: POTASSIUM CHLORIDE 20 MEQ TABLET PO STA (01:46)
[2023-11-08 02:15] VITALS: BP 146/84; O2SAT 96
== END 2023-11-08 01:55 | disposition home or self-care (01) ==
LOC: ED 23:29
DX: E87.6 Hypokalemia (principal); I10 Essential (primary) hypertension; E78.00 Pure hypercholesterolemia, unspecified; Z86.73 Personal history of transient ischemic attack (TIA), and cerebral infarction without residual deficits; Z87.442 Personal history of urinary calculi
CPT/HCPCS: 36415; 80053; 83690; 85025; 99283; 99284; A9270

== ENCOUNTER 2023-11-09 09:02 | Outpatient (CLI) | payer OTHER ==
[2023-11-09 09:32] LABS: BASOPHILS % (AUTO) 0.7 %; EOSINOPHILS # (AUTO) 0.1 10^3/uL (0.0-0.7); EOSINOPHILS % (AUTO) 1.6 %; HCT - HEMATOCRIT 47.9 % (42.0-52.0); HGB - HEMOGLOBIN 15.8 g/dL (14.0-18.0); LYMPHOCYTES # (AUTO) 2.4 10^3/uL (1.5-3.5); LYMPHOCYTES % (AUTO) 41.7 %; MEAN CORPUSCULAR HEMOGLOBIN 28.5 pg (27.0-31.0); MEAN CORPUSCULAR VOLUME 86.5 fL (80.0-94.0); MEAN PLATELET VOLUME 10.3 fL (7.4-11.4); MONOCYTES # (AUTO) 0.5 10^3/uL (0.0-1.0); MONOCYTES % (AUTO) 9.6 %; NEUTROPHILS # (AUTO) 2.6 10^3/uL (1.5-6.6); NEUTROPHILS % (AUTO) 46.2 %; PLT - PLATELET COUNT 279 10^3/uL (130-450); RED BLOOD COUNT 5.54 10^6/uL (4.70-6.10); WHITE BLOOD COUNT 5.6 x10^3/uL (4.8-10.8)
[2023-11-09 10:04] LABS: ALBUMIN 4.3 g/dL (3.2-5.5); ALBUMIN/GLOBULIN RATIO 1.9 (1.0-2.2); ALKALINE PHOSPHATASE 54 IU/L (42-121); ALT ALANINE AMINOTRANSFERASE 23 IU/L (10-60); AST ASPARTATE AMINOTRANSFERASE 18 IU/L (10-42); BILIRUBIN,TOTAL 0.6 mg/dL (0.2-1.0); BUN - BLOOD UREA NITROGEN 14 mg/dL (6-20); CALCIUM 9.7 mg/dL (8.5-10.3); CARBON DIOXIDE - CO2 25 mmol/L (21-32); CHLORIDE 108 mmol/L (101-111); CHOL/HDL RATIO 4.6 (<5.0); CHOLESTEROL 97 mg/dL; CREATININE 0.8 mg/dL (0.6-1.3); GFR - MDRD 105 (>89); GLUCOSE 108 mg/dL (74-104); HDL CHOLESTEROL 21 mg/dL; LDL CHOLESTEROL,CALCULATED 47 mg/dL; LDL/HDL RATIO 2.2 (<3.6); POTASSIUM 3.5 mmol/L (3.5-4.5); SODIUM 139 mmol/L (135-145); TOTAL PROTEIN 6.6 g/dL (6.4-8.9); TRIGLYCERIDES 146 mg/dL (48-352); VLDL CHOLESTEROL 29 mg/dL
[2023-11-09 10:15] LABS: THYROID STIMULATING HORMONE 1.05 uIU/mL (0.34-5.60)
== END 2023-11-09 09:03 | disposition home or self-care (01) ==
LOC: LAB 09:02
PROVIDERS: ATTEND Urology
DX: I10 Essential (primary) hypertension (principal); F41.1 Generalized anxiety disorder; F33.0 Major depressive disorder, recurrent, mild; F90.9 Attention-deficit hyperactivity disorder, unspecified type; I69.959 Hemiplegia and hemiparesis following unspecified cerebrovascular disease affecting unspecified side; E29.1 Testicular hypofunction
CPT/HCPCS: 36415; 80053; 80061; 82670; 83721; 84153; 84403; 84443; 85025